=== PATIENT | female | born 1995 | race Hispanic/Latino ===

== ENCOUNTER 2017-01-11 18:10 | Emergency (ER) | payer BC, OTHER ==
[~2017-01-11] VITALS: Ht 170.2 cm; Wt 66.6 kg
[~2017-01-11 18:10] MED LIST: NF-TORA10 PO; ONDAN4ODT PO; SULF1TAB35 PO
--- OUTSIDE RECORDS SUMMARY | 2017-01-11 18:17 | XMS REPORT | Continuity of Care Document ---
Author Author Formerly [facility] Address Unknown Phone Unavailable Support Name Relationship Address Phone SAMUEL BRASWELL MD Caregiver [address] [place], [place] [address] [place], Next Of Kin [address] [place] [address] Insurance Providers Payer Name Policy Number Subscriber Name Relationship [facility] [id number] Mouna Garcia 17 Self / Same As Patient Advance Directives Directive Response Recorded Date/Time Advanced Directives No 09/04/16 12:15am Chief Complaint and Reason for Visit Chief Complaint GI Complaint Reason for Visit Vomiting [id number] Dehydration Problems Active Problems Medical Problem Onset Date Status Dehydration Unknown Acute UTI (urinary tract infection) Unknown Acute Viral syndrome Unknown Acute Vomiting Unknown Acute Medications Current Home Medications Medication Dose Units Route Directions Days/Qty Instructions Start Date Ketorolac Tromethamine 10 Mg 10 Mg ORAL Every 6 Hours as needed for Nausea/ Vomiting 15 09/04/16 Sulfamethoxazole/Trimethoprim 1 Each 1 Tab ORAL Twice A Day 14 Ondansetron Hcl 4 Mg 4 Mg ORAL Every 4HRS as needed for N 10 09/04/16 Past Home Medications Medication Directions Ordered Status Ondansetron Hcl 4 Mg Tab.rapdis, 4 Mg Oral Every 4HRS 09/04/16 Discontinued Social History Query Response Start Date Stop Date Smoking Status Unknown, if ever smoked Hospital Discharge Instructions No hospital discharge instructions. Plan of Care Discharge Date 09/04/16 3:40am Disposition 01 HOME OR SELF-CARE Condition at Discharge Stable Instructions/Education Provided Dehydration (ED) Urinary Tract Infection in Women (ED) Acute Nausea and Vomiting (ED) Prescriptions See Medication Section Additional Instructions/Education ED MAR[place]ON if any worse. Zofran, toradol, bactrim as directed. See your doctor in 2-3 days if not greatly improved. Some of your test results may not be complete prior to your leaving the Emergency Department. The Emergency Department is not authorized to give test results over the phone. Please contact the doctor's office listed in this packet of information for your final results. Follow up with your primary care physician or return to the Emergency Department for worsening or worrisome symptoms. * Emergency Department phone number: [phone], x [phone]* MEDICAL RECORD If you need copies of your X-rays, call [phone]. If you need copies of your medical record, including lab results, a signed authorization for release of records will be required. A telephone call for release of Health Information is not allowed. BILLING Billing can sometimes be confusing and frustrating. To help avoid confusion in the future, please take a moment to acquaint yourself with the billing parties for services. [employer] Emergency Room Services [facility] Physician Services [facility] X-rays [facility] Patients will receive bills for services from the appropriate provider. If you have any questions about your [facility] bill, our staff will be happy to assist you. Please call [phone], and ask for the billing department. THANK YOU for choosing [facility] as your emergency care provider! Care Plan and Goals ~~Discharge Care Plan~~ Problem: Nausea, vomiting or diarrhea Goal: Decrease in nausea, vomiting or diarrhea Instructions: Encourage fluids approximately 6-8 glasses of water or noncarbonated fluids. Take medication(s) as directed. Follow home discharge instructions. Follow up with primary care physicians or disk and tape machine tender as directed. Functional Status No functional status results. Allergies, Adverse Reactions, Alerts No known allergies. Immunizations No immunization records. Vital Signs Acute Vital Signs Vital Response Date/Time Temperature (Fahrenheit) 97.0 09/04/2016 3:49am Pulse 70 bpm 09/04/2016 3:49am Respirations 18 09/04/2016 3:49am Height 5 ft 7 in Weight 145 lb Body Mass Index 22.0 kg/m^2 Results Laboratory Results Test Name Result Units Flags Reference Collection Date/Time Result Date/ Time Comments White Blood Count 14.26 10^3uL H 4.0-11.0 09/04/2016 12:40am 09/04/2016 1:12am Red Blood Count 4.67 10^6uL 4.00-5.00 09/04/2016 12:40am 09/04/2016 1: 12am Hemoglobin 13.2 g/dL 12.0-15.5 09/04/2016 12:40am 09/04/2016 1:12am Hematocrit 37.20 % 35.00-45.00 09/04/2016 12:40am 09/04/2016 1:12am Mean Corpuscular Volume 80 FL 80-100 09/04/2016 12:40am 09/04/2016 1: 12am Mean Corpuscular Hemoglobin 28.3 PG 26.0-34.0 09/04/2016 12:40am 2015 1:12am Mean Corpuscular Hemoglobin Concent 35.5 g/dL 31.0-37.0 09/04/2016 12: 40am 09/04/2016 1:12am Red Cell Distribution Width 11.8 % 11.8-15.6 09/04/2016 12:40am 2015 1:12am Platelet Count 240 10^3uL 150-450 09/04/2016 12:40am 09/04/2016 1:12am Mean Platelet Volume 10.3 FL H 6.0-9.5 09/04/2016 12:40am 09/04/2016 1: 12am Differential Total Cells Counted 100 09/04/2016 12:40am 09/04/2016 2:05am Segmented Neutrophils % 95 % H 51-67 09/04/2016 12:40am 09/04/2016 2: 05am Band Neutrophils % 0 % 0-6 09/04/2016 12:40am 09/04/2016 2:05am Lymphocytes % (Manual) 3 % L 20-46 09/04/2016 12:40am 09/04/2016 2:05am Monocytes % (Manual) 2 % L 3-11 09/04/2016 12:40am 09/04/2016 2:05am Eosinophils % (Manual) 0 % 0-4 09/04/2016 12:40am 09/04/2016 2:05am Basophils % (Manual) 0 % 0-2 09/04/2016 12:40am 09/04/2016 2:05am Metamyelocytes % 0 % 0-1 09/04/2016 12:40am 09/04/2016 2:05am Neutrophils # 13.6 # 09/04/2016 12:40am 09/04/2016 2:05am Absolute Band Neutrophils 0.0 # 09/04/2016 12:40am 09/04/2016 2:05am Lymphocytes # 0.4 # 09/04/2016 12:40am 09/04/2016 2:05am Monocytes # 0.3 # 09/04/2016 12:40am 09/04/2016 2:05am Eosinophils # 0.0 # 09/04/2016 12:40am 09/04/2016 2:05am Basophils # (Manual) 0.0 # 09/04/2016 12:40am 09/04/2016 2:05am Blood Morphology Comment SEE REFERENCE NORMAL 09/04/2016 12:40am 2:05am Hypochromasia 1+ 09/04/2016 12:40am 09/04/2016 2:05am Anisocytosis SLIGHT 09/04/2016 12:40am 09/04/2016 2:05am Volume Urine Centrifuged 12 mL 09/04/2016 12:30am 09/04/2016 2: 05am Urine Collection Type CLEAN CATCH 09/04/2016 12:30am 09/04/2016 2: 05am Urine Color Yellow 09/04/2016 12:30am 09/04/2016 1:19am Urine Clarity Slightly Cloudy 09/04/2016 12:30am 09/04/2016 1:19am Urine pH 8.5 5.0 - 8.0 09/04/2016 12:30am 09/04/2016 1:19am Urine Specific [place] 1.015 1.005-1.030 09/04/2016 12:30am 2015 1:19am Urine Protein 1+ H Negative 09/04/2016 12:30am 09/04/2016 1:19am Urine Glucose (UA) Negative Negative 09/04/2016 12:30am 09/04/2016 1: 19am Urine RBC (Auto) Negative Negative 09/04/2016 12:30am 09/04/2016 1: 19am Urine Ketones 4+ Negative 09/04/2016 12:30am 09/04/2016 1:19am Urine Nitrite Negative Negative 09/04/2016 12:30am 09/04/2016 1:19am Urine Bilirubin Negative Negative 09/04/2016 12:30am 09/04/2016 1: 19am Urine Urobilinogen 0.2 mg/dL 0.2-1.0 09/04/2016 12:30am 09/04/2016 1: 19am Urine Leukocyte Esterase 1+ H Negative 09/04/2016 12:30am 09/04/2016 1 :19am Urine RBC 0-2 /HPF 09/04/2016 12:30am 09/04/2016 2:09am Urine WBC 5-10 /HPF H 09/04/2016 12:30am 09/04/2016 2:09am Urine Bacteria Rare /HPF 09/04/2016 12:30am 09/04/2016 2:09am Urine Squamous Epithelial Cells >100 /LPF 09/04/2016 12:30am 2015 2:09am Urine Mucus 1+ 09/04/2016 12:30am 09/04/2016 2:09am Sodium Level 141 mmol/L 135-150 09/04/2016 12:40am 09/04/2016 1:12am Potassium Level 3.8 mmol/L 3.5-5.1 09/04/2016 12:40am 09/04/2016 1: 12am Chloride Level 105 mmol/L 98-108 09/04/2016 12:40am 09/04/2016 1:12am Carbon Dioxide Level 23 mmol/L 22-29 09/04/2016 12:40am 09/04/2016 1: 12am Anion Gap 17.2 MEQ/L H 3-15 09/04/2016 12:40am 09/04/2016 1:12am Blood Urea Nitrogen 8 mg/dL 7-18 09/04/2016 12:40am 09/04/2016 1:12am Creatinine 0.73 mg/dL 0.6-1.2 09/04/2016 12:40am 09/04/2016 1:12am BUN/Creatinine Ratio 11 10-20 09/04/2016 12:40am 09/04/2016 1:12am Estimat Glomerular Filtration Rate 120.6 09/04/2016 12:40am 2015 1:12am Estimated GFR (Non- 99.7 09/04/2016 12:40am 2015 1:12am Glucose Level 156 mg/dL H 70-110 09/04/2016 12:40am 09/04/2016 1:12am Calculated Osmolality 275 mosm/L L 280-300 09/04/2016 12:40am 2015 1:12am Calcium Level 9.5 mg/dL 8.8-10.8 09/04/2016 12:40am 09/04/2016 1:12am Calcium/Ionized Calcium Ratio 3.8 mg/dL 3.8-4.6 09/04/2016 12:40am 1:12am Total Bilirubin 0.8 mg/dL 0.1-1.0 09/04/2016 12:40am 09/04/2016 1:12am Alkaline Phosphatase 91 U/L 38-126 09/04/2016 12:40am 09/04/2016 1: 12am Aspartate Amino Transf (AST/SGOT) 38 U/L H 15-37 09/04/2016 12:40am 1:12am Alanine Aminotransferase (ALT/SGPT) 43 U/L 30-65 09/04/2016 12:40am 1:12am Total Protein 8.5 g/dL 6.4-8.5 09/04/2016 12:40am 09/04/2016 1:12am Albumin 4.8 g/dL 3.4-5.0 09/04/2016 12:40am 09/04/2016 1:12am Albumin/Globulin Ratio 1.297 1.1-1.8 09/04/2016 12:40am 09/04/2016 1: 12am Amylase Level 75 U/L 25-115 09/04/2016 12:40am 09/04/2016 1:12am Lipase 53 U/L 23-300 09/04/2016 12:40am 09/04/2016 1:12am C-Reactive Protein 1.60 mg/dL H 0.0-0.9 09/04/2016 12:40am 09/04/2016 1: 12am Group A Streptococcus Screen Negative Negative 09/04/2016 1:10am 1:34am Influenza Virus Type A Antibody Negative NEGATIVE 09/04/2016 1:15am 09/04/2016 1:48am Influenza Virus Type B Antibody Negative NEGATIVE 09/04/2016 1:15am 09/04/2016 1:48am Procedures No known history of procedures. Encounters Encounter Location Arrival/Admit Date Discharge/Depart Date Attending Provider Departed Emergency Room [facility] 09/04/16 12:02am 09/04/16 3:40am SAMUEL BRASWELL MD Recent Diagnosis
--- NOTE | 2017-01-11 19:01 | Diagnostic Imaging Report ---
INDICATION: Right ankle pain 3 views of the right ankle show no fracture or dislocation. IMPRESSION: Soft tissue swelling. No fracture seen. Dictated by: Dictated on workstation # [id number]
[2017-01-11] MEDS ORDERED: HYDR-3702 PO (19:41)
[2017-01-11 19:55] VITALS: BP 111/54
== END 2017-01-11 19:56 | disposition home or self-care (01) ==
LOC: EDUNIT# 18:10 → ED 18:13
DX: S93.401A Sprain of unspecified ligament of right ankle, initial encounter (principal); X50.9XXA Other and unspecified overexertion or strenuous movements or postures, initial encounter; Y93.67 Activity, basketball; Y92.214 College as the place of occurrence of the external cause; Y99.8 Other external cause status
CPT/HCPCS: 73610; 99283; L4350

== ENCOUNTER 2017-01-15 13:45 | Emergency (ER) | payer BC, OTHER ==
[~2017-01-15] VITALS: Ht 170.2 cm; Wt 67.9 kg
[~2017-01-15 13:45] MED LIST changes: +HYDR-3702 PO
[2017-01-15 14:44] VITALS: BP 120/45
== END 2017-01-15 14:45 | disposition home or self-care (01) ==
LOC: ED 13:47
DX: S93.491A Sprain of other ligament of right ankle, initial encounter (principal); X50.9XXA Other and unspecified overexertion or strenuous movements or postures, initial encounter; Y93.67 Activity, basketball; Y92.214 College as the place of occurrence of the external cause; Y99.8 Other external cause status
CPT/HCPCS: 99282